=== PATIENT | male | born 1960 | race Caucasian/White ===

== ENCOUNTER 2017-02-11 14:33 | Emergency (ER) | payer BC ==
[2017-02-11] MEDS ORDERED: DIPHENHYDRAMINE HCL 50 MG CAPSULE PO ONE (15:08)
[2017-02-11] MEDS ORDERED: PROCHLORPERAZINE MALEATE 10 MG TABLET PO ONE (15:09)
--- NOTE | 2017-02-11 15:10 | ER Document Report ---
ED Medical Screen (RME) - General Chief Complaint: Loss of Vision Stated Complaint: LOSS OF VISION Notes: 56-year-old male patient was at work when he developed blurriness in the right lateral field of vision that lasted 1-2 minutes. When it cleared up he developed a left frontal temporal headache. This is never happened before. He also reports several weeks of right thigh pain that went away and came back constant, then went away and now has returned and minutes there much of the time but not all the time. I have greeted and performed a rapid initial assessment of this patient. A comprehensive ED assessment and evaluation of the patient, analysis of test results and completion of the medical decision making process will be conducted by additional ED providers. TRAVEL OUTSIDE OF THE [place] IN LAST 30 DAYS: No - Related Data Allergies/Adverse Reactions: No Known Allergies Allergy (Unverified 02/11/17 14:55) Past Medical History Renal/ Medical History: Denies: Hx Peritoneal Dialysis Physical Exam - Vital signs Vitals: Temp Pulse Resp BP Pulse Ox 97.8 F 66 18 149/78 H 97 02/11/17 14:52 02/11/17 14:52 02/11/17 14:52 02/11/17 14:52 02/11/17 14:52 Course - Vital Signs Vital signs: Temp Pulse Resp BP Pulse Ox 97.8 F 66 18 149/78 H 97 02/11/17 14:52 02/11/17 14:52 02/11/17 14:52 02/11/17 14:52 02/11/17 14:52
--- NOTE | 2017-02-11 21:03 | ER Document Report ---
ED General - General Chief Complaint: Loss of Vision Stated Complaint: LOSS OF VISION Notes: Patient is a 56-year-old male with past medical history of obesity who presents with concerns regarding an episode today in which he had complete loss of vision in his right eye and partial loss of vision in his left eye. He states this episode started abruptly and lasted approximately 2-3 minutes. This was followed by a bitemporal, constant, throbbing headache that was gradual in onset and got progressively worse over the course of several hours. He has no history of similar symptoms in the past. States his symptoms have mostly resolved at this time after receiving medications in triage. He did not notice anything worsened his symptoms. He has not seen his primary care doctor regarding today's concerns. He denies any focal weakness, numbness, or altered mental status. No recent head trauma. TRAVEL OUTSIDE OF THE [place] IN LAST 30 DAYS: No - Related Data Allergies/Adverse Reactions: No Known Allergies Allergy (Unverified 02/11/17 14:55) Past Medical History - General Information source: Patient - Social History Smoking Status: Never Smoker Frequency of alcohol use: None Drug Abuse: None Lives with: Spouse/Significant other Family History: Reviewed & Not Pertinent Patient has suicidal ideation: No Patient has homicidal ideation: No Renal/ Medical History: Denies: Hx Peritoneal Dialysis Review of Systems - Review of Systems Notes: Constitutional: Negative for fever. HENT: Negative for sore throat. Eyes: Positive for visual changes. Cardiovascular: Negative for chest pain. Respiratory: Negative for shortness of breath. Gastrointestinal: Negative for abdominal pain, vomiting or diarrhea. Genitourinary: Negative for dysuria. Musculoskeletal: Negative for back pain. Skin: Negative for rash. Neurological: Positive for headaches, negative for weakness or numbness. 10 point ROS negative except as marked above and in HPI. Physical Exam - Vital signs Vitals: Temp Pulse Resp BP Pulse Ox 97.8 F 66 18 149/78 H 97 02/11/17 14:52 02/11/17 14:52 02/11/17 14:52 02/11/17 14:52 02/11/17 14:52 Interpretation: Hypertensive Notes: PHYSICAL EXAMINATION: GENERAL: Well-appearing, well-nourished and in no acute distress. HEAD: Atraumatic, normocephalic. EYES: Pupils equal round and reactive to light, extraocular movements intact, sclera anicteric, conjunctiva are normal. ENT: nares patent, oropharynx clear without exudates. Moist mucous membranes. NECK: Normal range of motion, supple without lymphadenopathy LUNGS: Breath sounds clear to auscultation bilaterally and equal. No wheezes rales or rhonchi. HEART: Regular rate and rhythm without murmurs ABDOMEN: Soft, nontender, normoactive bowel sounds. No guarding, no rebound. No masses appreciated. EXTREMITIES: Normal range of motion, no pitting or edema. No cyanosis. NEUROLOGICAL: Face symmetric. Tongue protrudes midline. Extraocular motions intact. Pupils are 2 mm and equally reactive. Normal speech, normal gait. 5 out of 5 strength in both the distal and proximal upper and lower extremities bilaterally. Sensation is grossly intact throughout. Finger to nose testing normal. Pronator drift normal. PSYCH: Normal mood, normal affect. SKIN: Warm, Dry, normal turgor, no rashes or lesions noted. Course - Re-evaluation Re-evalutation: 02/11/17 21:01 Patient presents with bilateral vision loss but does not appear consistent with an acute stroke or TIA. Patient describes a complete visual field loss on the right which is different than what he apparently stated in triage and which was only a lateral visual field loss. He states the entire eye was globally without vision and he did have a temporal field loss on the left. This does not fit with any ischemic pattern to the brain unless he had multiple occlusions at the same time which is unlikely. Patient has also had resolution of his symptoms at the time my assessment. He does describe a headache with associated nausea that started after the onset of the symptoms which could point towards a complex migraine although patient has no history of this diagnosis in the past. His headache was not maximal in onset, and he presented to the emergency department within 6 hours of the onset of his headache with a normal head CT. I do not suspect an acute subarachnoid hemorrhage based on history and negative head CT and will not pursue a lumbar puncture at this time. Patient has a completely normal neurologic exam at this time including normal visual field testing, and normal ambulation. I have instructed the patient to begin taking a daily aspirin based on his age, and have referred him to a primary care physician as he likely has multiple risk factors that should be modified to reduce his risk of possible transient ischemic attacks or strokes in the future even though I do not believe he had one of these events today.At this time will discharge with return precautions and follow-up recommendations. Verbal discharge instructions given a the bedside and opportunity for questions given. Medication warnings reviewed. Patient is in agreement with this plan and has verbalized understanding of return precautions and the need for primary care follow-up in the next 24-72 hours. - Vital Signs Vital signs: Temp Pulse Resp BP Pulse Ox 98.1 F 57 L 14 137/66 H 97 02/11/17 21:01 02/11/17 21:01 02/11/17 21:01 02/11/17 21:01 02/11/17 21:01 - Diagnostic Test Radiology reviewed: Image reviewed, Reports reviewed Radiology results interpreted by me: 02/12/17 02:56 CT head: No acute intracranial bleed or mass Discharge - Discharge Clinical Impression: Headache Qualifiers: Headache type: unspecified Headache chronicity pattern: acute headache Intractability: not intractable Qualified Code(s): R51 - Headache Vision, loss, sudden Qualifiers: Laterality: bilateral Qualified Code(s): H53.133 - Sudden visual loss, bilateral Condition: Good Disposition: HOME, SELF-CARE Additional Instructions: Please again taking a baby aspirin daily. Today her symptoms do not appear to be consistent with a stroke or transient ischemic attack. You may have had a complex migraine, particularly given your headache with your visual symptoms. However, you need to follow closely with a primary care doctor for risk factor modification as we discussed. Please return to emergency department immediately if you develop a sudden headache, worsening headache, recurrent severe visual deficits, or any other symptoms that are worrisome to you. Referrals: PARK REED MD [ACTIVE STAFF] - Follow up as needed
[2017-02-11 21:05] VITALS: BP 137/66
== END 2017-02-11 21:20 | disposition home or self-care (01) ==
LOC: ER 14:33
DX: H53.133 Sudden visual loss, bilateral (principal); R51 Headache; H54.7 Unspecified visual loss; E66.9 Obesity, unspecified
CPT/HCPCS: 99284; 70450; S0183

== ENCOUNTER → 2017-02-26 | Outpatient (CLI) | payer BC ==
[~2017-02-26] MED LIST: DIAZEPAM 5 MG TABLET ONE
== END ==
LOC: RAD 07:54
PROVIDERS: ATTEND Physician Assistant
DX: H54.61 Unqualified visual loss, right eye, normal vision left eye (principal)
CPT/HCPCS: 70551; 93880

== ENCOUNTER 2018-03-08 13:27 | Emergency (ER) | payer BC ==
[2018-03-08 13:39] VITALS: BP 147/68
[2018-03-08] MEDS ORDERED: KETOROLAC TROMETHAMINE INJ/PF 30 MG/1 ML SDV IM ONE (14:37)
--- NOTE | 2018-03-08 14:55 | ER Document Report ---
HPI - HPI Pain Level: 4 Notes: Patient is a 57-year-old male with a history of diabetes and chronic low back pain who presents to the ED complaining of right knee pain status post injury 2 days ago. Patient states that he may have twisted his knee when he slipped on the stairs. Patient states the pain started developing on Saturday the day after and is worse until today. He has not noticed any swelling, bruising, or deformity. Patient states that he is still ambulatory, but does limp on occasion. Patient states that he has injured this knee in the past. The pain does not radiate. Denies any drug allergies, smoking, IV drug use. Denies any headache, head injury, LOC, fever, neck pain, URI, sore throat, chest pain, palpitations, syncope, cough, shortness of breath, wheeze, dyspnea, abdominal pain, nausea/vomiting/diarrhea, urinary retention, dysuria, hematuria, loss of control of bowel or bladder, numbness/tingling, saddle anesthesia, muscle paralysis/weakness, or rash. - ROS Systems Reviewed and Negative: Yes All other systems reviewed and negative - MUSCULOSKELETAL Musculoskeletal: REPORTS: Extremity pain Past Medical History - Social History Smoking Status: Never Smoker Family History: Reviewed & Not Pertinent Patient has suicidal ideation: No Patient has homicidal ideation: No - Past Medical History Cardiac Medical History: Reports: Hx Hypertension Endocrine Medical History: Reports: Hx Diabetes Mellitus Type 2 Renal/ Medical History: Denies: Hx Peritoneal Dialysis Musculoskeltal Medical History: Reports Hx Arthritis Past Surgical History: Reports: Hx Abdominal Surgery - Gastric bypass, Hx Orthopedic Surgery - back Vertical Provider Document - CONSTITUTIONAL Agree With Documented VS: Yes Notes: PHYSICAL EXAMINATION: GENERAL: Well-appearing, well-nourished and in no acute distress. LUNGS: Breath sounds clear to auscultation bilaterally and equal. No wheezes rales or rhonchi. HEART: Regular rate and rhythm without murmurs, rubs, gallops. Musculoskeletal: Rt knee: FROM to passive/active. Strength 5+/5. N/V intact distal. + tenderness to the anterior knee and joint lines b/l. No obvious swelling, effusion, erythema, warmth. John Paul grossly neg/ligaments grossly negative, but limited with resistance during exam. Extremities: 1+ pitting edema b/l. Peripheral pulses 2+. Capillary refill less than 3 seconds. NEUROLOGICAL: Normal speech, normal gait. Normal sensory, motor exams PSYCH: Normal mood, normal affect. SKIN: Warm, Dry, normal turgor, no rashes or lesions noted. - INFECTION CONTROL TRAVEL OUTSIDE OF THE [place] IN LAST 30 DAYS: No Course - Re-evaluation Re-evalutation: 03/08/18 15:09 Patient is an afebrile, well-hydrated, 57-year-old male who presents to the ED with right knee pain. Vitals are acceptable. PE is otherwise unremarkable for any neurovascular compromise, obvious tendon/ligament rupture, obvious fracture/ dislocation, septic joint. X-ray was unremarkable for any acute pathology. Toradol given IM today. Patient declined crutches and a knee immobilizer. Conservative measures otherwise for symptoms. Schedule a consult orthopedics. Naproxen rx. Recheck with your PCM in 3-5 days as well. Return to the ED with any worsening/concerning symptoms otherwise as reviewed discharge. Patient is in agreement. - Vital Signs Vital signs: Temp Pulse Resp BP Pulse Ox 98.5 F 64 18 147/68 H 98 03/08/18 13:35 03/08/18 13:35 03/08/18 13:35 03/08/18 13:35 03/08/18 13:35 Discharge - Discharge Clinical Impression: Right knee pain Qualifiers: Chronicity: acute Qualified Code(s): M25.561 - Pain in right knee Condition: Stable Disposition: HOME, SELF-CARE Instructions: Ice & Elevation ([facility]) Additional Instructions: Rest, Ice, Compression, Elevation Tylenol/ibuprofen as needed Light stretches daily Strength exercises as able Moist heat and massage may help F/u with your PCP in 3-5 days for a recheck Consider consult(s) with Orthopedics/physical therapy for ongoing/worsening symptoms Return to the ED with any worsening symptoms and/or development of fever, headache, chest pain, palpitations, syncope, shortness of breath, trouble breathing, abdominal pain, n/v/d, muscle weakness/paralysis, numbness/tingling, swelling, redness, or other worsening symptoms that are concerning to you. Prescriptions: Naproxen 500 mg PO BID PRN #30 tablet PRN Reason: Forms: Elevated Blood Pressure Referrals: [facility] [Provider Group] - Follow up as needed
--- NOTE | 2018-03-08 15:08 | RADIOLOGY REPORT (SQ) ---
EXAM DESCRIPTION: KNEE RIGHT 4 VIEWS COMPLETED DATE/TIME: 03/08/2018 2:51 pm REASON FOR STUDY: rt knee pain COMPARISON: None. NUMBER OF VIEWS: Four views. TECHNIQUE: AP, lateral, and both oblique radiographic images acquired of the right knee. LIMITATIONS: None. FINDINGS: MINERALIZATION: Normal. BONES: Minimal osteophytic change of the patellofemoral joint. Minimal osteophytic change medial kne e joint. Peaking of intercondylar eminence. Benign periosteal reaction proximal tibia and fibula. JOINT: No effusion. SOFT TISSUES: No soft tissue swelling. No radio-opaque foreign body. OTHER: No other significant finding. IMPRESSION: Minimal degenerative arthritis of the right knee. TECHNICAL DOCUMENTATION: JOB ID: [id number] [employer]- All Rights Reserved Reading location - IP/workstation name: [email or web address]
== END 2018-03-08 15:15 | disposition home or self-care (01) ==
LOC: ER 13:27
DX: M25.561 Pain in right knee (principal); R60.0 Localized edema; E11.9 Type 2 diabetes mellitus without complications; I10 Essential (primary) hypertension; Z87.828 Personal history of other (healed) physical injury and trauma; Z98.84 Bariatric surgery status
CPT/HCPCS: 99283; 96372; 73564; J1885

== ENCOUNTER 2018-04-16 05:26 | Day surgery (SDC) | payer BC ==
[2018-04-09 09:46] LABS: HEMATOCRIT 41.7 % (37.9-51.0); HEMOGLOBIN 14.1 g/dL (13.5-17.0); MEAN CORPUSCULAR HEMOGLOBIN 30.9 pg (27.0-33.4); MEAN CORPUSCULAR HGB CONC 33.7 g/dL (32.0-36.0); MEAN CORPUSCULAR VOLUME 92 fl (80-97); PLATELET COUNT 242 10^3/uL (150-450); RED BLOOD COUNT 4.56 10^6/uL (4.35-5.55); RED CELL DISTRIBUTION WIDTH 13.7 % (11.5-14.0); WHITE BLOOD COUNT 6.8 10^3/uL (4.0-10.5)
[2018-04-09 09:51] LABS: APPEARANCE,URINE CLEAR; BILIRUBIN,URINE NEGATIVE (NEGATIVE); COLOR,URINE YELLOW; GLUCOSE, URINE 50 mg/dL (NEGATIVE); KETONES,URINE NEGATIVE (NEGATIVE); LEUKOCYTE ESTERASE,URINE NEGATIVE (NEGATIVE); NITRITE,URINE NEGATIVE (NEGATIVE); PROTEIN,URINE 30 mg/dL (NEGATIVE); URINE SPECIFIC GRAVITY 1.025
[2018-04-09 10:26] LABS: ANION GAP 11 (5-19); BLOOD UREA NITROGEN 15 mg/dL (7-20); CALCIUM 9.6 mg/dL (8.4-10.2); CARBON DIOXIDE 29 mmol/L (22-30); CHLORIDE 104 mmol/L (98-107); GLUCOSE 166 mg/dL (75-110); POTASSIUM 4.4 mmol/L (3.6-5.0); SODIUM 143.6 mmol/L (137-145)
--- NOTE | 2018-04-09 12:05 | RADIOLOGY REPORT (SQ) ---
EXAM DESCRIPTION: CHEST PA/LATERAL COMPLETED DATE/TIME: 04/09/2018 9:37 am REASON FOR STUDY: PRE-OP COMPARISON: None. EXAM PARAMETERS: NUMBER OF VIEWS: two views TECHNIQUE: Digital Frontal and Lateral radiographic views of the chest acquired. RADIATION DOSE: NA LIMITATIONS: none FINDINGS: LUNGS AND PLEURA: No opacities, masses or pneumothorax. No pleural effusion. MEDIASTINUM AND HILAR STRUCTURES: No masses or contour abnormalities. HEART AND VASCULAR STRUCTURES: Heart normal size. No evidence for failure. BONES: Osteoporotic without acute thoracic compression deformity HARDWARE: None in the chest. OTHER: No other significant finding. IMPRESSION: NO SIGNIFICANT RADIOGRAPHIC FINDING IN THE CHEST. TECHNICAL DOCUMENTATION: JOB ID: [id number] [employer]- All Rights Reserved Reading location - IP/workstation name: [email or web address]
--- NOTE | 2018-04-09 13:28 | EKG REPORT ---
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
[~2018-04-16 05:26] MED LIST changes: +CEFAZOLIN 2 GM/D5W RTU 2 GM/50 ML RTUPB IV PRN; -DIAZEPAM 5 MG TABLET ONE; +LACTATED RINGERS 1000 ML IV PRN; +LIDOCAINE 0.5% INJ-PF (5 MG/ML) 50 ML SDV SUBCUT PRN
[2018-04-16] MEDS ORDERED: BUPIVACAINE HCL 0.5 % INJ/PF 30 ML SDV ONE (06:49)
[2018-04-16] MEDS ORDERED: LIDOCAINE 1%/EPINEPHRINE INJ 20 ML VIAL ONE (06:49)
[2018-04-16] MEDS ORDERED: KETAMINE HCL INJ 500 MG/10 ML VIAL ONE (07:01)
[2018-04-16] MEDS ORDERED: PROPOFOL INJ 200 MG/20 ML VIAL IV ONE ×2 (07:01→07:15)
[2018-04-16] MEDS ORDERED: FENTANYL CITRATE INJ/PF 100 MCG/2 ML AMPUL ONE ×2 (07:01→08:22)
[2018-04-16] MEDS ORDERED: MIDAZOLAM 2 MG/2 ML INJ ONE (07:01)
[2018-04-16] MEDS ORDERED: DIPHENHYDRAMINE HCL 50 MG/ML VIAL IV PRN (07:30)
[2018-04-16] MEDS ORDERED: MEPERIDINE HCL/PF INJ 25 MG/1 ML DISP.SYRIN IV PRN (07:30)
[2018-04-16] MEDS ORDERED: FENTANYL CITRATE INJ/PF 100 MCG/2 ML AMPUL IV PRN ×3 (07:30)
[2018-04-16] MEDS ORDERED: OXYCODONE-ACETAMINOPHEN 5-325 MG TABLET PO PRN ×2 (07:30)
[2018-04-16] MEDS ORDERED: PROMETHAZINE HCL INJ 25 MG/1 ML VIAL IV PRN ×2 (07:30)
--- NOTE | 2018-04-16 08:00 | Operative Report ---
Operative Report DATE OF SURGERY: 04/16/18 PREOPERATIVE DIAGNOSIS: Right knee loose bodies POSTOPERATIVE DIAGNOSIS: Right knee loose bodies. Posterior horn medial meniscal tear. 15 mm medial femoral condyle chondral defect. Intact ACL. Grade I-II chondromalacia the lateral compartment. Intact lateral meniscus. Large trochlear groove chondral lesion, 2 cm OPERATION: Arthroscopic partial right medial meniscectomy and abrasion chondroplasty of the medial and patellofemoral compartments SURGEON: MERLIN CONTRERAS ANESTHESIA: LMAC ESTIMATED BLOOD LOSS: Minimal PROCEDURE: With the patient supine and operative table the right lower extremity is prepped and draped in a sterile fashion. The knee is insufflated with a combination of Marcaine, Xylocaine, and epinephrine. Subsequent medial and lateral patella portals are created for the introduction of the arthroscope and debridement instrumentation. The joint is examined in systematic fashion findings as above. Loose bodies are removed using mechanical shaver. Using a basket rondure mechanical shaver and electric frequency ablation probe a partial medial meniscectomy performed from proximal at 3:00 to 12:00 on the face of the dial. The large medial femoral condyle chondral lesion extends down to subchondral bone is debrided of all loose fragments. Lateral compartment needs no surgical intervention Patellofemoral compartment has a large chondral lesion measuring approximately 2 cm in the trochlear groove. This is debrided using mechanical shaver of all loose fragments. The instrumentation is removed. The portals reapproximated interrupted nylon. A sterile compressive dressing was applied and the patient's return to PACU in satisfactory condition.
[2018-04-16] MEDS ORDERED: OXYCODONE HCL IR 5 MG TABLET PO PRN (08:32)
[2018-04-16] MEDS ORDERED: ONDANSETRON 4 MG TAB.RAPDIS PO PRN (08:32)
[2018-04-16 10:22] VITALS: BP 152/78
[2018-04-16] MEDS ORDERED: LIDOCAINE 2% INJ-PF (20 MG/ML) 2 ML AMPUL ONE (13:29)
[2018-04-16] MEDS ORDERED: GLYCOPYRROLATE 1 MG/5 ML SYRINGE ONE (13:29)
== END 2018-04-16 10:05 | disposition home or self-care (01) ==
LOC: OROUT 05:26
PROVIDERS: ATTEND Orthopaedic Surgery
DX: M23.221 Derangement of posterior horn of medial meniscus due to old tear or injury, right knee (principal); M94.261 Chondromalacia, right knee; M23.41 Loose body in knee, right knee; M23.306 Other meniscus derangements, unspecified meniscus, right knee; E11.9 Type 2 diabetes mellitus without complications; E66.9 Obesity, unspecified; I10 Essential (primary) hypertension; Z79.899 Other long term (current) drug therapy; Z79.84 Long term (current) use of oral hypoglycemic drugs; Z79.1 Long term (current) use of non-steroidal anti-inflammatories (NSAID); Z68.35 Body mass index [BMI] 35.0-35.9, adult; Z98.84 Bariatric surgery status
CPT/HCPCS: 93005; 36415; 82962; 85027; 80048; 81001; 83036; 71046; 93010; 29881; J2250; J3490 ×5; J3010; J2704; J0690; 1400

== ENCOUNTER → 2018-06-27 | Outpatient (CLI) | payer BC ==
[2018-06-27 11:21] LABS: ANION GAP 15 (5-19); BLOOD UREA NITROGEN 48 mg/dL (7-20); CALCIUM 9.5 mg/dL (8.4-10.2); CARBON DIOXIDE 25 mmol/L (22-30); CHLORIDE 100 mmol/L (98-107); GLUCOSE 275 mg/dL (75-110); POTASSIUM 5.3 mmol/L (3.6-5.0); SODIUM 139.7 mmol/L (137-145)
== END ==
LOC: OD 10:14
PROVIDERS: ATTEND Family Medicine
DX: E87.5 Hyperkalemia (principal)
CPT/HCPCS: 36415; 80048

== ENCOUNTER → 2018-11-17 | Outpatient (CLI) | payer BC ==
[2018-11-17 17:25] LABS: ABSOLUTE EOSINOPHILS # (AUTO) 0.1 10^3/uL (0.0-0.6); ABSOLUTE LYMPHOCYTES (AUTO) 1.6 10^3/uL (0.5-4.7); ABSOLUTE MONOCYTES (AUTO) 0.7 10^3/uL (0.1-1.4); ABSOLUTE NEUT (AUTO) 5.5 10^3/uL (1.7-8.2); BASOPHILS % (AUTO) 0.5 % (0-2); EOSINOPHILS % (AUTO) 1.6 % (0-6); HEMATOCRIT 39.5 % (37.9-51.0); HEMOGLOBIN 13.3 g/dL (13.5-17.0); LYMPHOCYTES % (AUTO) 19.8 % (13-45); MEAN CORPUSCULAR HEMOGLOBIN 29.3 pg (27.0-33.4); MEAN CORPUSCULAR HGB CONC 33.6 g/dL (32.0-36.0); MEAN CORPUSCULAR VOLUME 88 fl (80-97); MONOCYTES % (AUTO) 8.8 % (3-13); PLATELET COUNT 288 10^3/uL (150-450); RED BLOOD COUNT 4.52 10^6/uL (4.35-5.55); RED CELL DISTRIBUTION WIDTH 14.3 % (11.5-14.0); SEGMENTED NEUTROPHILS % (AUTO) 69.3 % (42-78); TOTAL CELLS COUNTED % (AUTO) 100 %; WHITE BLOOD COUNT 7.9 10^3/uL (4.0-10.5)
[2018-11-17 17:39] LABS: ALANINE AMINOTRANSFERASE 34 U/L (21-72); ALBUMIN 4.2 g/dL (3.5-5.0); ALKALINE PHOSPHATASE 78 U/L (38-126); ANION GAP 8 (5-19); ASPARTATE AMINO TRANSFERASE 23 U/L (17-59); BILIRUBIN,DIRECT 0.2 mg/dL (0.0-0.4); BILIRUBIN,TOTAL 0.4 mg/dL (0.2-1.3); BLOOD UREA NITROGEN 22 mg/dL (7-20); CALCIUM 9.7 mg/dL (8.4-10.2); CARBON DIOXIDE 29 mmol/L (22-30); CHLORIDE 103 mmol/L (98-107); GLUCOSE 162 mg/dL (75-110); POTASSIUM 4.5 mmol/L (3.6-5.0); SODIUM 140.2 mmol/L (137-145)
--- NOTE | 2018-11-17 17:44 | RADIOLOGY REPORT (SQ) ---
EXAM DESCRIPTION: CHEST PA/LATERAL COMPLETED DATE/TIME: 11/17/2018 5:12 pm REASON FOR STUDY: COUGH ([id number]) COMPARISON: 04/09/2018 EXAM PARAMETERS: NUMBER OF VIEWS: two views TECHNIQUE: Digital Frontal and Lateral radiographic views of the chest acquired. RADIATION DOSE: NA LIMITATIONS: none FINDINGS: LUNGS AND PLEURA: No opacities, masses or pneumothorax. No pleural effusion. MEDIASTINUM AND HILAR STRUCTURES: No masses or contour abnormalities. HEART AND VASCULAR STRUCTURES: Heart normal size. No evidence for failure. BONES: No acute findings. HARDWARE: None in the chest. OTHER: No other significant finding. IMPRESSION: NO SIGNIFICANT RADIOGRAPHIC FINDING IN THE CHEST. TECHNICAL DOCUMENTATION: JOB ID: [id number] [employer]- All Rights Reserved Reading location - IP/workstation name: [email or web address]
== END ==
LOC: OD 16:49
PROVIDERS: ATTEND Family Medicine
DX: R05 Cough (principal)
CPT/HCPCS: 36415; 71046; 80053; 85025

== ENCOUNTER → 2019-01-07 | Outpatient (CLI) | payer BC, OTHER ==
--- NOTE | 2019-01-07 16:48 | XCELERA REPORT ---
[address] [address] Lower Extremity Venous Evaluation Procedure: A bilateral duplex scan of the lower extremity veins was performed. The evaluation included responses to compression and other maneuvers with patient in the supine and standing positions to assess venous insufficiency. Right Sided Venous Evaluation Deep venous system evaluation shows patent veins with significant reflux identified. 5.6 second reflux in the CFV, 2.3 seconds reflux in the Femoral vein. 2.4 seconds in the Popliteal vein. Sapheno Femoral junction: no reflux. Femoral vein reflux: no reflux. Greater Saphenous vein, Proximal thigh: reflux: no reflux. Greater Saphenous vein, Distal thigh: reflux: no reflux. Greater Saphenous vein, Proximal below knee: reflux: no reflux. No significant Perforators identified. Left Sided Venous Evaluation Deep venous system evaluation shows patent veins with significant reflux identified. 5.6 second reflux in the CFV, 2.3 seconds reflux in the Femoral vein. 2.4 seconds in the Popliteal vein. Sapheno Femoral junction: no reflux. Femoral vein reflux: no reflux. Greater Saphenous vein, Proximal thigh: reflux: no reflux. Greater Saphenous vein, Distal thigh: reflux: no reflux. Greater Saphenous vein, Proximal below knee: reflux: no reflux. No significant Perforators identified. Interpretation Summary No duplex evidence of DVT or obstruction in the bilateral lower extremities. No significant deep or superficial reflux identified, on either side. Name: JACLYN HUFF Age: 58 yrs Gender: Male : 1960 Patient Status: Outpatient Patient Location: Study Date: 01/07/2019 01:20 PM Reason For Study: SWELLING Ordering Physician: PARK REED Performed By: Donnell Yepez : PARK REED > Gomez Topete
--- NOTE | 2019-01-07 18:15 | XCELERA REPORT ---
[address] [address] Transthoracic Echocardiogram Report Name: JACLYN HUFF Age: 58 yrs Gender: Male : 1960 Patient Status: Outpatient Patient Location: Study Date: 01/07/2019 01:51 PM Height: 70 in Weight: 250 lb BSA: 2.3 m2 Reason For Study: HTN Ordering Physician: PARK REED Performed By: Donnell Yepez Interpretation Summary No biplane LVEF due to poor Apical views, not all LV segements seen. Mild concentric LVH with Normal LVEF 55-60% and LVDD, incomplete segmental analysis, see pictorals. no LV enlargement, No , trace AR ,normal 3 cusps AV. Mild calcified mitral annulus, mild mitral valve thickening, no MS, mild MR with no LA enlargement. Mild TR with no pulm HTN, [id number]. No RH enlargement. MMode/2D Measurements & Calculations RVDd: 3.6 cm LVIDd: 5.3 cm FS: 29.8 % Ao root diam: 3.4 cm IVSd: 1.3 cm LVIDs: 3.7 cm EDV(Teich): 135.2 ml LVPWd: 1.1 cm ESV(Teich): 58.8 ml Ao root area: 8.9 cm2 LA dimension: 4.1 cm EF(Teich): 56.5 % Doppler Measurements & Calculations MV E max sue: MV P1/2t max sue: Ao V2 max: LV V1 max P.9 cm/sec 85.2 cm/sec 121.9 cm/sec 3.7 mmHg MV A max sue: MV P1/2t: 111.2 msec Ao max P.9 mmHg LV V1 max: 83.3 cm/sec MVA(P1/2t): 2.0 cm2 96.3 cm/sec MV E/A: 0.98 MV dec slope: 224.3 cm/sec2 MV dec time: 0.28 sec PA V2 max: TR max sue: MV P1/2t-pr_phl: 87.9 cm/sec 232.1 cm/sec 111.2 msec PA max PG: TR max P.6 mmHg 3.1 mmHg Left Ventricle The left ventricle is grossly normal size. There is mild concentric left ventricular hypertrophy. The left ventricular ejection fraction is normal. The E/E' ratio between the mitral E wave and the mitral annulus E' wave is abnormal, with a value of > 10. Not all wall segments were well visualized. There is no thrombus. Atria The right atrium is normal in size. The left atrial size is normal. The interatrial septum is intact with no evidence for an atrial septal defect. Mitral Valve The mitral valve is normal in structure and function. There is mild mitral annular calcification. There is no evidence of mitral valve prolapse. There is no vegetation seen on the mitral valve. There is no mitral valve stenosis. There is a mild amount of mitral regurgitation. Aortic Valve The aortic valve is normal in structure and functions normally. The aortic valve is trileaflet. The aortic valve opens well. There is no aortic valvular vegetation. There is no aortic valve stenosis. No aortic regurgitation is present. Tricuspid Valve The tricuspid valve is not well visualized, but is grossly normal. There is no tricuspid valve prolapse. There is no tricuspid stenosis. There is a trace to mild amount of tricuspid regurgitation. Right ventricular systolic pressure is normal. Pulmonic Valve There is no pulmonic valvular regurgitation. Great Vessels The aortic root is normal size. There is aortic root sclerosis/calcification. The inferior vena cava appeared normal and decreased > 50% with respiration (RAP 5-10 mmHg). Effusions Minimal pericardial effusion. I WMSI = 1.09 % Normal = 91 Segments Size X - Cannot 2 - 4 - 1-2 small Interpret 1 - Normal Hypokinetic 3 - AkineticDyskinetic 3-5 moderate 5 - 6-14 large Aneurysmal 15-16 diffuse : PARK REED > Choco Chappell
== END ==
LOC: SP 14:47
PROVIDERS: ATTEND Family Medicine
DX: I10 Essential (primary) hypertension (principal); I73.9 Peripheral vascular disease, unspecified
CPT/HCPCS: 93306; 93970

== ENCOUNTER → 2019-04-21 | Outpatient (CLI) | payer OTHER ==
--- NOTE | 2019-04-22 12:15 | XCELERA REPORT ---
[address] [address] Lower Extremity Arterial Evaluation Name: JACLYN HUFF Age: 58 yrs Gender: Male : 1960 Patient Status: Outpatient Patient Location: SP Study Date: 04/21/2019 11:14 AM Procedure: A color flow and duplex scan of the lower extremity arteries was performed bilaterally with velocity and waveform anaylsis. 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 Ankle Brachial index not obtained due to recently done. Left Side Arterial Evaluation Normal velocity and triphasic waveforms noted from the Common Femoral artery to the Posterior Tibial artery .Monophasic with low velocity in the Anterior Tibial, no broadening, . Ankle Brachial index not obtained due to recently done. Interpretation Summary Mild hemodynamically significant lesions in the bilateral lower extremities, on duplex imaging, at rest. Disease evident tin the Anterior tibials only. : PAKR REED > Gomez Topete
== END ==
LOC: SP 11:02
PROVIDERS: ATTEND Family Medicine
DX: I73.9 Peripheral vascular disease, unspecified (principal)
CPT/HCPCS: 93925

== ENCOUNTER → 2020-04-25 | Outpatient (CLI) | payer OTHER ==
--- NOTE | 2020-04-25 12:04 | RADIOLOGY REPORT (SQ) ---
EXAM DESCRIPTION: MRI LUMBAR SPINE WITHOUT IMAGES COMPLETED DATE/TIME: 04/25/2020 11:50 am REASON FOR STUDY: M54.5 LOW BACK PAIN M54.5 LOW BACK PAIN COMPARISON: None. TECHNIQUE: Sagittal and Axial imaging includes T1, T2, STIR and gradient echo sequences. Coronal T2/ HASTE imaging. LIMITATIONS: None. FINDINGS: VISUALIZED UPPER ABDOMEN: Limited evaluation. No acute or suspicious findings suggested. SEGMENTATION: No transitional anatomy. The lowest well-developed disc space is labeled L5-S1. ALIGNMENT: There is grade 1 retrolisthesis of L4 on L5. VERTEBRAE: Intact. BONE MARROW: Normal. No marrow replacement or reactive changes. DISC SIGNAL: Loss of height and signal at L1-L2 and L2-L3. Loss of normal water signal at L4-L5. Fi ndings are consistent with desiccation. POSTERIOR ELEMENTS: Generally intact. No pars defect evident. HARDWARE: None in the spine. CORD AND CONUS: Normal in size and signal intensity. Conus at the appropriate level. SOFT TISSUES: No aortic aneurysm seen. No bulky retroperitoneal adenopathy or mass. No paraspinal mas s or fluid. L1-L2: No significant spinal stenosis or exit foraminal stenosis. L2-L3: Bilateral facet arthropathy. No significant central stenosis. Mild asymmetric narrowing of t he right neural foramina. L3-L4: No significant spinal stenosis or exit foraminal stenosis. L4-L5: Annular disc bulging. Bilateral facet arthropathy. Asymmetric narrowing of the left neural f oramina. L5-S1: There appears to been a left hemilaminectomy. No central stenosis or foraminal narrowing. LOWER THORACIC: Incompletely imaged. No stenosis seen. SACRUM: Visualized upper sacrum intact. OTHER: No other significant findings. IMPRESSION: Annular disc bulging at L4-L5 with asymmetric narrowing of the left neural foramina. Mild multilevel desiccation. TECHNICAL DOCUMENTATION: JOB ID: [id number] 2010 [employer]- All Rights Reserved Reading location - IP/workstation name: [email or web address]
== END ==
LOC: RAD 10:12
PROVIDERS: ATTEND Physician Assistant
DX: M51.86 Other intervertebral disc disorders, lumbar region (principal); M54.5 Low back pain
CPT/HCPCS: 72148

== ENCOUNTER → 2020-07-11 | Outpatient (CLI) | payer OTHER ==
--- NOTE | 2020-07-12 13:31 | RADIOLOGY REPORT (SQ) ---
EXAM DESCRIPTION: CHEST PA/LATERAL IMAGES COMPLETED DATE/TIME: 07/11/2020 4:19 pm REASON FOR STUDY: SHORTNESS OF BREATH COMPARISON: 11/17/2018 EXAM PARAMETERS: NUMBER OF VIEWS: two views TECHNIQUE: Digital Frontal and Lateral radiographic views of the chest acquired. RADIATION DOSE: NA LIMITATIONS: none FINDINGS: LUNGS AND PLEURA: No opacities, masses or pneumothorax. No pleural effusion. MEDIASTINUM AND HILAR STRUCTURES: No masses or contour abnormalities. HEART AND VASCULAR STRUCTURES: Heart normal size. No evidence for failure. BONES: No acute findings. HARDWARE: None in the chest. OTHER: No other significant finding. IMPRESSION: NO SIGNIFICANT RADIOGRAPHIC FINDING IN THE CHEST. TECHNICAL DOCUMENTATION: JOB ID: [id number] 2010 [employer]- All Rights Reserved Reading location - IP/workstation name: [email or web address]
== END ==
LOC: OD 15:39
PROVIDERS: ATTEND Family Medicine
DX: R06.02 Shortness of breath (principal)
CPT/HCPCS: 71046